=== PATIENT | female | born 1990 | race Caucasian/White ===

== ENCOUNTER 2022-07-27 22:13 | Emergency (ER) | payer OTHER ==
[~2022-07-27] VITALS: Ht 162.6 cm; Wt 131.5 kg
[2022-07-27 22:25] VITALS: BP_SYST 121
[2022-07-27] MEDS ORDERED: GASTROGRAFIN 120 ML ONE (22:39)
== END 2022-07-27 22:55 | disposition home or self-care (01) ==
LOC: SED 22:13
DX: Z43.1 Encounter for attention to gastrostomy (principal); I10 Essential (primary) hypertension; Z79.899 Other long term (current) drug therapy
CPT/HCPCS: 99284; 43762; 74240; Q9963

== ENCOUNTER 2023-08-30 22:45 | Inpatient (IN) | payer OTHER ==
[~2023-08-30] VITALS: Ht 165.1 cm; Wt 83.5 kg
[2023-08-30 22:47] VITALS: BP_SYST 125; PULSE 85; RESP 20; TEMP 97.6; O2SAT 99
[2023-08-30] MEDS ORDERED: VANCOMYCIN HCL 1000 MG/VIAL IV ONE (23:41)
[2023-08-30] MEDS ORDERED: MEROPENEM 500 MG VIAL IV ONE (23:43)
[2023-08-30 23:44] LABS: ALBUMIN 2.7 g/dL (3.4-4.8); BILIRUBIN,DIRECT 0.1 mg/dL (0.0-0.3); CALCIUM 9.4 mg/dL (8.4-11.0); CREATININE 1.05 mg/dL (0.55-1.30); POTASSIUM 4.2 mmol/L (3.5-5.1); TOTAL BILIRUBIN 0.3 mg/dL (0.0-1.0); TOTAL PROTEIN, SERUM 8.2 g/dL (6.4-8.3)
[2023-08-30] MEDS: VANCOMYCIN HCL 1,000 MG in NS 250 ML IV ONE (23:49)
[2023-08-30] MEDS: MEROPENEM 1 GM IVPB PREMIX 50 ML IV ONE (23:50)
[2023-08-30] MEDS: NACL 0.9% 1,000 ML IV ONE (23:50)
[2023-08-30 23:54] LABS: BASOPHILS % (AUTO) 0.4 % (0.0-2.0); EOSINOPHILS # (AUTO) 0.3 K/uL (0.0-0.4); EOSINOPHILS % (AUTO) 3.2 % (0.0-4.0); HEMATOCRIT 27.4 % (36-48); HEMOGLOBIN 9.1 g/dL (12.0-16.0); MEAN CORPUSCULAR HEMOGLOBIN 28 pg (27-31); MEAN CORPUSCULAR HGB CONC 33 % (32-36); MEAN CORPUSCULAR VOLUME 83 fL (79.0-98.0); MONOCYTES # (AUTO) 0.3 K/uL (0.0-1.0); MONOCYTES % (AUTO) 3.7 % (1.7-9.3); NEUTROPHILS # (AUTO) 6.5 K/uL (1.8-7.7); NEUTROPHILS % (AUTO) 80.7 % (40.0-70.0); PLATELET COUNT (AUTO) 434 K/uL (130-430); RED BLOOD CELL COUNT(AUTO) 3.29 MIL/uL (4.2-6.2); RED CELL DISTRIBUTION WIDTH 16.6 % (9.0-15.0); WHITE BLOOD COUNT (AUTO) 8.1 K/uL (4.8-10.8)
[2023-08-31] VITALS (9 sets, daily range): BP systolic 114–147; PULSE 79–95; RESP 17–20; TEMP 96.8–98.2; O2SAT 95–100
[2023-08-31] MEDS: NACL 0.9% 1,000 ML IV ONE (01:59)
[2023-08-31] MEDS ORDERED: ASCO500T20 GT (02:11)
[2023-08-31] MEDS ORDERED: FAMO20TA8 GT (02:11)
[2023-08-31] MEDS ORDERED: FER300L GT (02:11)
[2023-08-31] MEDS ORDERED: COLL100 GT (02:11)
[2023-08-31] MEDS ORDERED: ERTA1VIA3 INJ (02:11)
[2023-08-31] MEDS ORDERED: BACL20TA GT (02:11)
[2023-08-31] MEDS ORDERED: MULT-1193 GT (02:26)
[2023-08-31] MEDS ORDERED: FOLI-43 GT (02:26)
[2023-08-31] MEDS ORDERED: INSU100V9 SQ (02:26)
[2023-08-31] MEDS ORDERED: LOP600 GT (02:26)
[2023-08-31] MEDS ORDERED: MAGN400T10 GT (02:26)
[2023-08-31] MEDS ORDERED: IPRA4AER INH (02:26)
[2023-08-31] MEDS ORDERED: COLL30OI2 TP (02:27)
[2023-08-31] MEDS ORDERED: OMEG-145 GT (02:27)
[2023-08-31] MEDS ORDERED: INSU100V7 SUBCUT (02:27)
[2023-08-31] MEDS ORDERED: AMIN887L20 GT (02:27)
[2023-08-31] MEDS ORDERED: REGL10 GT (02:27)
[2023-08-31] MEDS: D5/0.45 NS 1,000 ML IV ONE (05:30)
[2023-08-31 08:18] LABS: ABG O2 SAT% ESTIMATE 98.1 % (94.0-100.0); BLOOD GAS BASE EXCESS 0.8 mmol/L (-3.0-3.0); BLOOD GAS HCO3 25.7 mmol/L (21.0-27.0); BLOOD GAS PCO2 42.3 mmHg (35.0-45.0); BLOOD GAS PH 7.402 (7.350-7.450); BLOOD GAS PO2 111.1 mmHg (75.0-100.0)
[2023-08-31 08:28] LABS: ALLEN'S TEST POSITIVE (P)
[2023-08-31] MEDS ORDERED: HYDROcodone/ACETAMIN 5-325 MG TAB (NORCO/ VICODIN) GT PRN (10:45)
[2023-08-31] MEDS ORDERED: ONDANSETRON HCL 4 MG/2 ML VIAL IVP PRN (10:45)
[2023-08-31] MEDS ORDERED: NALOXONE HCL 0.4 MG/ML AMP (NARCAN) IVP PRN ×2 (10:45)
[2023-08-31] MEDS ORDERED: COLLAGENASE 30 GM OINT Non-Formulary 30 GM OINT..GM. TP SCH (10:45)
[2023-08-31] MEDS ORDERED: ACETAMINOPHEN 325 MG TABLET GT PRN ×2 (10:45→11:15)
[2023-08-31] MEDS ORDERED: LORazepam 2 MG/ML VIAL IVP PRN (10:45)
[2023-08-31] MEDS ORDERED: IPRATROPIUM/ALBUTEROL SULFATE 120 PUFFS/4 GM INH INH SCH (12:00)
[2023-08-31] MEDS: METOCLOPRAMIDE HCL 10 MG/10 ML UDC GT ONE (13:02)
[2023-08-31] MEDS: DOCUSATE SODIUM 100 MG/10 ML UDC GT ONE (13:03)
[2023-08-31] MEDS: FERROUS SULFATE 300 MG/5 ML UDC GT ONE (13:03)
[2023-08-31] MEDS: OMEGA-3/DHA/EPA/FISH OIL 1 GM CAPSULE GT ONE (13:03)
[2023-08-31] MEDS: ASCORBIC ACID 500 MG TABLET GT ONE (13:03)
[2023-08-31] MEDS: FAMOTIDINE 20 MG TABLET GT ONE (13:04)
[2023-08-31] MEDS: HYDROcodone/ACETAMIN 10-325 MG TAB GT PRN (13:04)
[2023-08-31] MEDS: FOLIC ACID 1 MG TABLET GT ONE (13:04)
[2023-08-31] MEDS: MULTIVITS,CA,MINERALS/IRON/FA 1 TABLET GT ONE (13:09)
[2023-08-31] MEDS: MEROPENEM 500 MG in NS 50 ML IV SCH (13:10)
[2023-08-31] MEDS: IPRATROPIUM/ALBUTEROL SULFATE 3 ML AMPUL.NEB (DUONEB) INH SCH (13:11)
[2023-08-31] MEDS: INSULIN REGULAR, HUMAN 100 UNITS/ML, 3 ML VIAL (humuLIN R) SUBCUT PRN (13:36)
[2023-08-31] MEDS ORDERED: AMINO ACIDS GT SCH (15:00)
[2023-08-31] MEDS ORDERED: PROTEIN HYDROLYS GT SCH (15:00)
[2023-08-31] MEDS: BACLOFEN 10 MG TABLET GT SCH (17:34)
[2023-08-31 20:44] LABS: BILIRUBIN,URINE NEGATIVE (NEGATIVE); CLARITY/URINE CLEAR (CLEAR); COLOR,URINE YELLOW (YELLOW); GLUCOSE,URINE NEGATIVE (NEGATIVE); KETONES,URINE NEGATIVE (NEGATIVE); LEUKOCYTE ESTERASE ,URINE NEGATIVE (NEGATIVE); NITRITE, URINE NEGATIVE (NEGATIVE); PH,URINE 6.5 (5.0-8.0); PROTEIN URINE NEGATIVE (NEGATIVE); UROBILINOGEN,URINE 0.2 (0.2-1.0)
[2023-08-31 20:46] LABS: BLOOD, URINE TRACE (NEGATIVE)
[2023-08-31 20:59] LABS: BACTERIA,URINE None Seen /HPF (None Seen)
[2023-08-31] MEDS: GEMFIBROZIL 600 MG TABLET (LOPID) GT SCH (22:37)
[2023-08-31] MEDS: MAGNESIUM OXIDE 400 MG TABLET GT SCH (22:38)
[2023-08-31] MEDS: INSULIN GLARGINE 100 UNITS/ML, 10 ML VIAL SQ SCH (22:51)
[2023-09-01] VITALS (10 sets, daily range): BP systolic 95–123; PULSE 76–95; RESP 16–18; TEMP 96.3–98.4; O2SAT 98–100
[2023-09-01 04:54] LABS: BASOPHILS % (AUTO) 0.6 % (0.0-2.0); EOSINOPHILS # (AUTO) 0.2 K/uL (0.0-0.4); EOSINOPHILS % (AUTO) 2.9 % (0.0-4.0); HEMOGLOBIN 8.8 g/dL (12.0-16.0); LYMPHOCYTES # (AUTO) 1.8 K/uL (1.0-5.5); LYMPHOCYTES % (AUTO) 22.4 % (20.5-51.5); MEAN CORPUSCULAR HEMOGLOBIN 28 pg (27-31); MEAN CORPUSCULAR HGB CONC 33 % (32-36); MEAN CORPUSCULAR VOLUME 85 fL (79.0-98.0); MONOCYTES # (AUTO) 0.7 K/uL (0.0-1.0); MONOCYTES % (AUTO) 8.8 % (1.7-9.3); NEUTROPHILS # (AUTO) 5.4 K/uL (1.8-7.7); NEUTROPHILS % (AUTO) 65.3 % (40.0-70.0); PLATELET COUNT (AUTO) 428 K/uL (130-430); RED BLOOD CELL COUNT(AUTO) 3.19 MIL/uL (4.2-6.2); RED CELL DISTRIBUTION WIDTH 16.7 % (9.0-15.0); WHITE BLOOD COUNT (AUTO) 8.2 K/uL (4.8-10.8)
[2023-09-01 05:14] LABS: ALBUMIN 2.3 g/dL (3.4-4.8); CALCIUM 8.5 mg/dL (8.4-11.0); CREATININE 0.81 mg/dL (0.55-1.30); POTASSIUM 3.5 mmol/L (3.5-5.1); TOTAL BILIRUBIN 0.2 mg/dL (0.0-1.0); TOTAL PROTEIN, SERUM 7.2 g/dL (6.4-8.3)
[2023-09-01] MEDS: METOCLOPRAMIDE HCL 10 MG/10 ML UDC GT SCH (08:49)
[2023-09-01] MEDS: DOCUSATE SODIUM 100 MG/10 ML UDC GT SCH (08:49)
[2023-09-01] MEDS: FERROUS SULFATE 300 MG/5 ML UDC GT SCH (08:49)
[2023-09-01] MEDS: MULTIVITS,CA,MINERALS/IRON/FA 1 TABLET GT SCH (08:50)
[2023-09-01] MEDS: FAMOTIDINE 20 MG TABLET GT SCH (08:50)
[2023-09-01] MEDS: OMEGA-3/DHA/EPA/FISH OIL 1 GM CAPSULE GT SCH (08:50)
[2023-09-01] MEDS: ASCORBIC ACID 500 MG TABLET GT SCH (08:50)
[2023-09-01] MEDS: FOLIC ACID 1 MG TABLET GT SCH (08:50)
[2023-09-01] MEDS: BALSAM PERU/CASTOR OIL 56.7 GM OINT...G. TP SCH (10:25)
[2023-09-01] MEDS: INSULIN GLARGINE 100 UNITS/ML, 10 ML VIAL SQ SCH (20:51)
[2023-09-02] VITALS (11 sets, daily range): BP systolic 96–123; PULSE 84–95; RESP 14–19; TEMP 96.7–98.6; O2SAT 94–100
[2023-09-02 06:13] LABS: ERYTHROCYTE SEDIMENTATION RATE 62 MM/HR (0-20)
[2023-09-02 06:25] LABS: BASOPHILS % (AUTO) 0.5 % (0.0-2.0); EOSINOPHILS # (AUTO) 0.3 K/uL (0.0-0.4); EOSINOPHILS % (AUTO) 4.2 % (0.0-4.0); HEMOGLOBIN 9.1 g/dL (12.0-16.0); LYMPHOCYTES # (AUTO) 1.4 K/uL (1.0-5.5); LYMPHOCYTES % (AUTO) 18.9 % (20.5-51.5); MEAN CORPUSCULAR HEMOGLOBIN 28 pg (27-31); MEAN CORPUSCULAR HGB CONC 33 % (32-36); MEAN CORPUSCULAR VOLUME 85 fL (79.0-98.0); MONOCYTES # (AUTO) 0.7 K/uL (0.0-1.0); NEUTROPHILS % (AUTO) 66.4 % (40.0-70.0); PLATELET COUNT (AUTO) 425 K/uL (130-430); RED BLOOD CELL COUNT(AUTO) 3.31 MIL/uL (4.2-6.2); RED CELL DISTRIBUTION WIDTH 16.7 % (9.0-15.0); RETICULOCYTE COUNT 4.1 % (0.5-1.5); WHITE BLOOD COUNT (AUTO) 7.5 K/uL (4.8-10.8)
[2023-09-02 07:00] LABS: CALCIUM 8.9 mg/dL (8.4-11.0); CREATININE 0.82 mg/dL (0.55-1.30); POTASSIUM 4.3 mmol/L (3.5-5.1)
[2023-09-02 07:12] LABS: TOTAL IRON BIND. CAPACITY 223 ug/dL (250-450)
[2023-09-02] MEDS: VANCOMYCIN HCL 1,000 MG in NS 250 ML IV SCH (15:51)
[2023-09-03] VITALS (11 sets, daily range): BP systolic 108–122; PULSE 77–98; RESP 16–20; TEMP 98.2–98.8; O2SAT 95–99
[2023-09-03 07:35] LABS: BASOPHILS % (AUTO) 0.5 % (0.0-2.0); CALCIUM 8.9 mg/dL (8.4-11.0); CREATININE 0.86 mg/dL (0.55-1.30); EOSINOPHILS # (AUTO) 0.4 K/uL (0.0-0.4); EOSINOPHILS % (AUTO) 5.6 % (0.0-4.0); HEMATOCRIT 27.4 % (36-48); HEMOGLOBIN 8.9 g/dL (12.0-16.0); LYMPHOCYTES # (AUTO) 1.5 K/uL (1.0-5.5); LYMPHOCYTES % (AUTO) 19.3 % (20.5-51.5); MEAN CORPUSCULAR HEMOGLOBIN 28 pg (27-31); MEAN CORPUSCULAR HGB CONC 32 % (32-36); MEAN CORPUSCULAR VOLUME 85 fL (79.0-98.0); MONOCYTES # (AUTO) 0.6 K/uL (0.0-1.0); MONOCYTES % (AUTO) 8.1 % (1.7-9.3); NEUTROPHILS # (AUTO) 5.1 K/uL (1.8-7.7); NEUTROPHILS % (AUTO) 66.5 % (40.0-70.0); PLATELET COUNT (AUTO) 386 K/uL (130-430); POTASSIUM 4.6 mmol/L (3.5-5.1); RED BLOOD CELL COUNT(AUTO) 3.22 MIL/uL (4.2-6.2); WHITE BLOOD COUNT (AUTO) 7.7 K/uL (4.8-10.8)
[2023-09-03 07:49] LABS: ERYTHROCYTE SEDIMENTATION RATE 72 MM/HR (0-20)
[2023-09-04] VITALS (7 sets, daily range): BP systolic 98–112; PULSE 69–90; RESP 16–18; TEMP 97.7–97.9; O2SAT 95–99
[2023-09-04 05:49] LABS: BASOPHILS % (AUTO) 0.7 % (0.0-2.0); EOSINOPHILS # (AUTO) 0.4 K/uL (0.0-0.4); EOSINOPHILS % (AUTO) 5.7 % (0.0-4.0); HEMATOCRIT 27.6 % (36-48); HEMOGLOBIN 9.1 g/dL (12.0-16.0); LYMPHOCYTES # (AUTO) 1.8 K/uL (1.0-5.5); LYMPHOCYTES % (AUTO) 27.4 % (20.5-51.5); MEAN CORPUSCULAR HEMOGLOBIN 27 pg (27-31); MEAN CORPUSCULAR HGB CONC 33 % (32-36); MEAN CORPUSCULAR VOLUME 84 fL (79.0-98.0); MONOCYTES # (AUTO) 0.6 K/uL (0.0-1.0); MONOCYTES % (AUTO) 8.8 % (1.7-9.3); NEUTROPHILS # (AUTO) 3.8 K/uL (1.8-7.7); NEUTROPHILS % (AUTO) 57.4 % (40.0-70.0); PLATELET COUNT (AUTO) 368 K/uL (130-430); WHITE BLOOD COUNT (AUTO) 6.6 K/uL (4.8-10.8)
[2023-09-04 06:04] LABS: ERYTHROCYTE SEDIMENTATION RATE 63 MM/HR (0-20)
[2023-09-04 06:23] LABS: ALBUMIN 2.5 g/dL (3.4-4.8); CALCIUM 9.3 mg/dL (8.4-11.0); CREATININE 0.8 mg/dL (0.55-1.30); POTASSIUM 4.3 mmol/L (3.5-5.1); TOTAL BILIRUBIN 0.3 mg/dL (0.0-1.0); TOTAL PROTEIN, SERUM 7.4 g/dL (6.4-8.3); VANCOMYCIN,RANDOM 19.6 ug/mL (20.0-30.0)
[2023-09-04] MEDS ORDERED: LEVO-62 GT (14:09)
== END 2023-09-04 17:05 | DRG 720 ==
LOC: SED 22:45 → STU 08-31 01:56
PROVIDERS: ADMIT Preventive Medicine Preventive Medicine/Occupational Environmental Medicine; ATTEND Preventive Medicine Preventive Medicine/Occupational Environmental Medicine
DX: A41.2 Sepsis due to unspecified staphylococcus (principal); J96.20 Acute and chronic respiratory failure, unspecified whether with hypoxia or hypercapnia; G93.1 Anoxic brain damage, not elsewhere classified; J18.9 Pneumonia, unspecified organism; E44.0 Moderate protein-calorie malnutrition; E88.09 Other disorders of plasma-protein metabolism, not elsewhere classified; Z93.0 Tracheostomy status; E11.65 Type 2 diabetes mellitus with hyperglycemia; D64.9 Anemia, unspecified; D75.839 Thrombocytosis, unspecified; G47.33 Obstructive sleep apnea (adult) (pediatric); E66.9 Obesity, unspecified; R13.10 Dysphagia, unspecified; N39.0 Urinary tract infection, site not specified; Z86.73 Personal history of transient ischemic attack (TIA), and cerebral infarction without residual deficits; Z88.0 Allergy status to penicillin; Z88.8 Allergy status to other drugs, medicaments and biological substances; Z91.040 Latex allergy status; Z79.899 Other long term (current) drug therapy; Z98.891 History of uterine scar from previous surgery; Z93.1 Gastrostomy status; Z79.4 Long term (current) use of insulin; Z68.30 Body mass index [BMI] 30.0-30.9, adult; R33.9 Retention of urine, unspecified
CPT/HCPCS: 36415; 36600; 71045; 76770; 80048; 80053; 80076; 80202; 81000; 81001; 81015; 82803; 82948; 83010; 83540; 83550; 83605; 85025; 85044; 85651; 87040; 87081; 93005; 94070; 94640; 94760; 99285; G0378; J1815; J1956; J2060; J2185; J3370; J7050; J8597